=== PATIENT | female | born 1935 | race Caucasian/White ===

== ENCOUNTER 2018-12-12 09:58 | Day surgery (SDC) | payer MEDICARE, OTHER ==
[2018-12-11 12:12] VITALS: BMI 20.4
[2018-12-12] MEDS ORDERED: ALPRAZolam 0.5 MG TAB PO PRN (10:16)
[2018-12-12] MEDS ORDERED: ZOLPIDEM 5 MG TAB PO PRN (10:16)
[2018-12-12] MEDS ORDERED: SODIUM CHLORIDE 0.9% 1,000 ML in EMPTY BAG 1 BAG IV ONE (10:16)
[2018-12-12] MEDS ORDERED: ALPRAZolam 0.25 MG TAB PO PRN (10:16)
[2018-12-12] MEDS ORDERED: ASPIRIN 325 MG TAB PO STA (10:19)
[2018-12-12 10:45] LABS: Basophils % (A) 0 %; Eosinophils # (A) 0.2 k/uL (0-0.7); Eosinophils % (A) 2 %; HCT 40.8 % (34.0-46.0); HGB 13.1 gm/dL (11.4-16.0); Lymphocytes # (A) 0.8 k/uL (1.0-4.8); Lymphocytes % (A) 9 %; MCH 30.3 pg (25.0-35.0); MCHC 32.2 g/dL (31.0-37.0); MCV 94.2 fL (80.0-100.0); Mean Platelet Volume 7.5; Monocytes # (A) 0.4 k/uL (0-1.0); Monocytes % (A) 4 %; Neutrophils # (A) 8.3 k/uL (1.3-7.7); Neutrophils % (A) 85 %; Platelet Count 184 k/uL (150-450); RBC 4.33 m/uL (3.80-5.40); RDW 13.2 % (11.5-15.5); WBC 9.8 k/uL (3.8-10.6)
[2018-12-12 10:56] VITALS: RESP 16; TEMP 98.2
[2018-12-12] MEDS ORDERED: SODIUM CHLORIDE 0.9% 1,000 ML IV ONE (10:58)
[2018-12-12 11:00] LABS: Calcium 9.6 mg/dL (8.4-10.2); Potassium 3.9 mmol/L (3.5-5.1)
[2018-12-12] MEDS ORDERED: MIDAZOLAM (PF) 2 MG/2 ML VIAL IVP ONE (12:09)
[2018-12-12] MEDS ORDERED: LIDOCAINE 1% INJ 10MG/ML (20 ML MDV) SQ ONE (12:22)
[2018-12-12] MEDS ORDERED: IOPAMIDOL-250 100ML BTL INTRAARTER ONE (12:37)
[2018-12-12] MEDS ORDERED: SODIUM CHLORIDE 0.9% 1,000 ML IV SCH (12:45)
[2018-12-12 17:36] VITALS: BP 136/65; PULSE 76
--- NOTE | 2018-12-12 17:57 | AN ---
ANGIOGRAPHY REPORT ABDOMINAL AORTOGRAM AND BILATERAL LOWER EXTREMITY RUNOFF: DATE OF SERVICE: 12/12/2018 PERFORMING PHYSICIAN: Aditya Contreras MD, [employer]. PROCEDURES PERFORMED: 1. Abdominal aortogram. 2. Bilateral lower extremity runoff. 3. Selective left SFA angiogram. 4. Selective right common femoral artery angiogram. INDICATION: This is an 82-year-old female patient with hypertension and dyslipidemia who was seen recently by her brusher warp, Dr. Adams, and was diagnosed with critical limb ischemia with nonhealing ulcer involving the second toe on the left foot. Because of that, severe PAD was suspected and the patient was referred to see me. APPROACH: Right common femoral artery. COMPLICATIONS: None. LEVEL OF SEDATION: Moderate, with sedation length of 15 minutes. PROCEDURE DESCRIPTION: After obtaining informed consent, the patient was brought to the cardiac catheter finisher and inspector. The right common femoral artery was cannulated using micropuncture technique. The micropuncture wire passed easily. Then I placed a 5-Mozambican sheath in the right common femoral artery. After that I did an abdominal aortogram and bilateral lower extremity runoff using 5-Mozambican pigtail catheter, which was initially placed at the level of the arteries, and it was pulled into above the bifurcation of the aorta to right and left common iliac arteries. I did select the left SFA after that using stiff Glidewire with 5-Mozambican RIM catheter. Then I did selective left SFA angiogram. I did also selective right common femoral artery angiogram with injection through the sheath. The procedure was completed without any complication. SELECTIVE PERIPHERAL ANGIOGRAM: 1. The aorta appeared to be angiographically normal. 2. Iliac arteries. The right and left common iliac and right and left external iliac and right and left internal iliac appeared to be angiographically normal. 3. Common femoral arteries. Both are angiographically normal. 4. Profundae. Both are patent. 5. SFA. Both SFA appeared to have intermediate disease in the distal portion that appeared to be in the range of 50%. 6. Popliteals. Both popliteals appeared to be angiographically normal. 7. Below the knee. On the right side there is 2-vessel runoff with posterior tibial and peroneal and occluded anterior tibial. The PT has a lesion that appeared to be in the range of 80% to 90%. On the left side, the AT has a proximal lesion that appeared to be in the range of 90%. The peroneal is open. The PT is occluded. CONCLUSION: 1. Intermediate femoropopliteal disease bilaterally. 2. Severe tlozy-kwy-woii disease bilaterally. There was severe disease involving the right posterior tibial artery and critical disease involving the left anterior tibial artery. POST-PROCEDURE MANAGEMENT: 1. REED OR WIND INSTRUMENT TUNER of the left anterior tibial artery. 2. Follow up with the patient. MMODL / IJN: [id number] /
--- NOTE | 2018-12-15 07:36 | IR ---
Fluoroscopy HISTORY: Left second toe wound 2.8 minutes fluoroscopy time supplied to the referring clinician. 281 intraoperative C-arm images do cument the procedure. See dictated report from cardiology.
== END 2018-12-12 17:30 | disposition home or self-care (01) ==
LOC: CATHCVL 09:58
PROVIDERS: ATTEND Internal Medicine Interventional Cardiology
DX: I70.203 Unspecified atherosclerosis of native arteries of extremities, bilateral legs (principal); J44.9 Chronic obstructive pulmonary disease, unspecified; Z87.891 Personal history of nicotine dependence; Z79.52 Long term (current) use of systemic steroids; Z79.899 Other long term (current) drug therapy; Z88.1 Allergy status to other antibiotic agents; Z88.2 Allergy status to sulfonamides
CPT/HCPCS: 36200; 75625; 75716; 80048; 85025; C1769 ×5; C1894 ×2; J2001; Q9966; J2250

== ENCOUNTER 2019-01-21 07:30 | Day surgery (SDC) | payer MEDICARE, OTHER ==
[~2019-01-21 07:30] MED LIST: ALPRAZolam 0.25 MG TAB PO PRN; ASPIRIN 325 MG TAB PO STA; SODIUM CHLORIDE 0.9% 1,000 ML in EMPTY BAG 1 BAG IV ONE
[2019-01-21] MEDS ORDERED: ACETAMINOPHEN TAB 325 MG TAB ONE (07:44)
[2019-01-21 07:58] LABS: Basophils # (A) 0.1 k/uL (0-0.2); Basophils % (A) 1 %; Eosinophils # (A) 0.2 k/uL (0-0.7); Eosinophils % (A) 2 %; HCT 41.9 % (34.0-46.0); HGB 13.8 gm/dL (11.4-16.0); Lymphocytes # (A) 1.1 k/uL (1.0-4.8); Lymphocytes % (A) 11 %; MCH 31.1 pg (25.0-35.0); MCHC 32.9 g/dL (31.0-37.0); MCV 94.5 fL (80.0-100.0); Mean Platelet Volume 7.4; Monocytes # (A) 0.4 k/uL (0-1.0); Monocytes % (A) 4 %; Neutrophils # (A) 8.1 k/uL (1.3-7.7); Neutrophils % (A) 82 %; Platelet Count 223 k/uL (150-450); RBC 4.43 m/uL (3.80-5.40); RDW 13.4 % (11.5-15.5)
[2019-01-21 08:13] LABS: Potassium 4.2 mmol/L (3.5-5.1)
[2019-01-21] MEDS ORDERED: SODIUM CHLORIDE 0.9% 500 ML 500 ML with niCARdipine 6.25 MG, NITROGLYCERIN-D5W PMX 0.05... IV ONE ×4 (08:57)
[2019-01-21] MEDS ORDERED: MIDAZOLAM (PF) 2 MG/2 ML VIAL IV ONE (09:01)
[2019-01-21] MEDS ORDERED: MIDAZOLAM (PF) 2 MG/2 ML VIAL IVP ONE (09:37)
[2019-01-21] MEDS ORDERED: HEPARIN SODIUM 1,000 UN/ML (10ML VL) IV ONE (09:49)
[2019-01-21] MEDS ORDERED: CLOPIDOGREL 75 MG TAB PO ONE (10:21)
[2019-01-21] MEDS ORDERED: ALBUTEROL NEBULIZED 2.5 MG/3 ML INHALATION PRN (10:28)
[2019-01-21] MEDS ORDERED: POTASSIUM CHLORIDE ER 20 MEQ TAB.ER PO SCH (10:30)
[2019-01-21] MEDS ORDERED: SODIUM CHLORIDE 0.9% 1,000 ML IV SCH (10:30)
--- NOTE | 2019-01-21 11:06 | AN ---
ANGIOGRAPHY REPORT DATE OF SERVICE: January 21, 2019 PERFORMING PHYSICIAN: Aditya Contreras MD, hvac designer. PROCEDURE PERFORMED: 1. Selective left anterior tibial artery angiogram. 2. An atherectomy of the left anterior tibial artery. 3. Successful balloon angioplasty of the left anterior tibial artery using 4.0 x 40 mm IN.PACT drug coated balloon with an excellent angiographic result and reduction of stenosis from 99% to 0%. INDICATION: This is a pleasant 83-year-old female patient with hypertension and dyslipidemia who was experiencing left leg intermittent claudication and underwent a peripheral angiogram which revealed critical disease involving the ostial of the left AT. Because of that, she was brought today to undergo an intervention. APPROACH: Left anterior tibial artery with a retrograde ipsilateral technique. COMPLICATION: None. LEVEL OF SEDATION: Moderate with sedation length of 42 minutes. PROCEDURE DESCRIPTION: After obtaining an informed consent, the patient was brought to the cardiac label operator. The left AT was cannulated using micropuncture technique under ultrasound guidance, the micropuncture wire passed easily then I placed a slender sheath with an inner diameter of 6 mm and outer diameter of 5 mm. After that I did selective left AT angiogram. Then I did cross the lesion in the ostial of the left AT using hydro ST wire. I did exchange the wire into ViperWire using 0.014 CXI catheter. After that I did atherectomy of the left AT using the orbital atherectomy device from [facility]. After that I did balloon angioplasty, which was 4 x 40 mm IN.PACT drug coated balloon and the following angiogram showed excellent angiographic results with reduction of stenosis from 99% to 0%. The procedure was completed without any complication. POSTPROCEDURE MANAGEMENT: 1. Dual antiplatelet therapy. 2. Risk factors modifications. 3. Follow up with the patient. MMODL / IJN: [id number] /
--- NOTE | 2019-01-21 13:57 | IR ---
Fluoroscopy HISTORY: Left toe ulcer 5.4 minutes fluoroscopy time supplied to the referring clinician. 82 intraoperative C-arm images doc ument the procedure. See dictated report from cardiology.
[2019-01-21] MEDS ORDERED: ATORVASTATIN 20 MG TAB PO SCH (21:00)
[2019-01-22 06:03] VITALS: BP 120/71; RESP 18; TEMP 98.2
[2019-01-22 06:52] LABS: African American GFR (CKD) >90 (>60 ml/min/1.73 sqM)
[2019-01-22] MEDS ORDERED: IPRATROPIUM 0.5 MG/2.5 ML NEBU INHALATION SCH (08:00)
[2019-01-22] MEDS ORDERED: SYMBICORT 80-4.5 MCG INHALER INHALATION SCH (08:00)
[2019-01-22 08:32] VITALS: PULSE 68
--- NOTE | 2019-01-22 08:43 | DS ---
DISCHARGE SUMMARY DATE OF ADMISSION: January 21, 2019 DATE OF DISCHARGE: January 22, 2019 BRIEF HISTORY: This is a pleasant 83-year-old female patient who was admitted to the hospital yesterday and underwent successful atherectomy and balloon angioplasty of the left anterior tibial artery from a pedal access. On followup with her today, she does have good left dorsalis pedis pulse. She is going to be discharged on dual antiplatelet therapy and I will follow up with the patient at [place]. ALFREDO / BRITTANEY: [id number] /
[2019-01-22] MEDS ORDERED: ESCITALOPRAM 10 MG TAB PO SCH (09:00)
[2019-01-22] MEDS ORDERED: predniSONE 10 MG TAB PO SCH (09:00)
[2019-01-22] MEDS ORDERED: CLOPIDOGREL 75 MG TAB PO SCH (09:00)
[2019-01-22] MEDS ORDERED: amLODIPine 2.5 MG TAB PO SCH (09:00)
[2019-01-22] MEDS ORDERED: RALOXIFENE 60 MG TAB PO SCH (09:00)
[2019-01-22] MEDS ORDERED: ASPIRIN 325 MG TAB PO SCH (09:00)
[2019-01-22] MEDS ORDERED: NON-FORMULARY DRUG (Roflumilast [Daliresp] 500 MCG) PO SCH (09:00)
[2019-01-22] MEDS ORDERED: MAGNESIUM OXIDE 400 MG TAB PO SCH (09:00)
[2019-01-22] MEDS ORDERED: busPIRone HCl 5 MG TAB PO SCH (09:00)
== END 2019-01-22 09:57 | disposition home or self-care (01) ==
LOC: CATHCVL 07:30 → 3SCARD 10:13 → CATHCVL 01-22 09:57
PROVIDERS: ATTEND Internal Medicine Interventional Cardiology
DX: I70.212 Atherosclerosis of native arteries of extremities with intermittent claudication, left leg (principal); J44.9 Chronic obstructive pulmonary disease, unspecified; I10 Essential (primary) hypertension; E78.5 Hyperlipidemia, unspecified; Z79.899 Other long term (current) drug therapy; Z79.52 Long term (current) use of systemic steroids; Z88.1 Allergy status to other antibiotic agents; Z88.2 Allergy status to sulfonamides; Z87.891 Personal history of nicotine dependence
CPT/HCPCS: 37229; 94640 ×2; 80048; 82565; 85025; C1894 ×2; C1714; C1769 ×5; C2623; J1644 ×2; J7512; J2250